=== PATIENT | male | born 1950 | race Caucasian/White ===

== ENCOUNTER → 2021-08-30 | Outpatient (CLI) | payer MEDICARE, OTHER ==
--- NOTE | 2021-08-30 15:08 | Diagnostic Imaging Report ---
EXAMINATION: Abdomen 1 view HISTORY: ABDOMINAL PAIN CONSTIPATION COMPARISON: None available. FINDINGS: There is a moderate amount of gas and stool throughout the colon. Nonobstructive bowel gas pattern. No radiopaque foreign body. The lung bases are clear. Degenerative changes of the hips and spine. Osseous structures are otherwise intact. IMPRESSION: Moderate stool burden without other acute abnormality in the abdomen. Dictated by: Dictated on workstation # [id number]
[2021-08-30 15:25] LABS: HEMATOCRIT 43 % (40-54); HEMOGLOBIN 14.5 g/dL (13.3-17.7); MEAN CORPUSCULAR HEMOGLOBIN 32 pg (25-34); MEAN CORPUSCULAR HGB CONC 34 g/dL (32-36); MEAN CORPUSCULAR VOLUME 95 fL (80-99); MEAN PLATELET VOLUME 10.3 fL (9.0-12.2); PLATELET COUNT 190 10^3/uL (130-400); WHITE BLOOD COUNT 11.7 10^3/uL (4.3-11.0)
[2021-08-30 15:34] LABS: ALBUMIN 4.1 GM/DL (3.2-4.5); POTASSIUM 4.2 MMOL/L (3.6-5.0)
--- NOTE | 2021-08-30 15:34 | Diagnostic Imaging Report ---
INDICATION: Abdominal pain, constipation, as well as abdominal thrill. FINDINGS: Proximal abdominal aorta measures 2.6 cm AP x 3.1 cm transverse. Midabdominal aorta measures 2.1 cm AP x 2.6 cm transverse. Distal aorta is 2.1 cm AP x 2.6 cm transverse. Right iliac measures 1.9 x 1.4 cm. Left iliac measures 1.3 x 1.7 cm. A note is made of non peristalsing, noncompressible loop of bowel in the upper midabdomen, correlating with the area of patient's pain. IMPRESSION: 1. 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 No dissection is seen. There is also some mild dilatation of bilateral iliac arteries. 2. Noncompressible, non peristalsing loop of bowel in the upper midabdomen correlating with the area of patient's pain. Features are nonspecific. If symptoms persist, CT may be useful for further evaluation. Dictated by: Dictated on workstation # [id number]
[2021-08-30 15:36] LABS: CALCIUM 10.1 MG/DL (8.5-10.1)
[2021-08-30 15:37] LABS: TOTAL PROTEIN 7.3 GM/DL (6.4-8.2)
[2021-08-30 15:39] LABS: BILIRUBIN,TOTAL 0.6 MG/DL (0.1-1.0)
[2021-08-30 15:40] LABS: CREATININE SERUM 0.96 MG/DL (0.60-1.30)
== END ==
LOC: RAD 14:49
PROVIDERS: ATTEND Nurse Practitioner Family
DX: K59.00 Constipation, unspecified (principal)
CPT/HCPCS: 36415; 74018; 76775; 80053; 84443; 85027

== ENCOUNTER → 2021-09-04 | Outpatient (CLI) | payer MEDICARE, OTHER ==
[2021-09-04 15:55] LABS: HEMATOCRIT 41 % (40-54); MEAN CORPUSCULAR HEMOGLOBIN 32 pg (25-34); MEAN CORPUSCULAR HGB CONC 34 g/dL (32-36); MEAN CORPUSCULAR VOLUME 94 fL (80-99); MEAN PLATELET VOLUME 10.2 fL (9.0-12.2); PLATELET COUNT 224 10^3/uL (130-400); WHITE BLOOD COUNT 7.9 10^3/uL (4.3-11.0)
--- NOTE | 2021-09-04 15:59 | Diagnostic Imaging Report ---
PROCEDURE: CT abdomen without contrast. TECHNIQUE: Multiple contiguous axial images were obtained through the abdomen without the use of intravenous contrast. Auto Exposure Controls were utilized during the CT exam to meet ALARA standards for radiation dose reduction. INDICATION: Abdominal pain. COMPARISON: None. FINDINGS: Please note, the pelvis was omitted from the examination. There is some questionable inflammatory change involving the gallbladder. Recommend ultrasound correlation. The lung bases are clear. There are benign renal cysts. The visualized pancreas, spleen, liver, adrenal glands, bowel, and vascular structures are unremarkable. IMPRESSION: Questionable cholecystitis. Recommend ultrasound correlation. Dictated by: Dictated on workstation # [id number]
[2021-09-04 16:03] LABS: ALBUMIN 3.6 GM/DL (3.2-4.5); CHLORIDE 102 MMOL/L (98-107); POTASSIUM 3.6 MMOL/L (3.6-5.0); SODIUM 138 MMOL/L (135-145)
[2021-09-04 16:04] LABS: AMYLASE 58 U/L (25-125); CALCIUM 9.4 MG/DL (8.5-10.1)
[2021-09-04 16:05] LABS: GLUCOSE 108 MG/DL (70-105)
[2021-09-04 16:06] LABS: TOTAL PROTEIN 6.2 GM/DL (6.4-8.2)
[2021-09-04 16:07] LABS: BILIRUBIN,TOTAL 0.6 MG/DL (0.1-1.0); CARBON DIOXIDE 26 MMOL/L (21-32)
[2021-09-04 16:09] LABS: ALKALINE PHOSPHATASE 78 U/L (40-136); CREATININE SERUM 0.94 MG/DL (0.60-1.30); GFR ESTIMATED 87
[2021-09-04 16:10] LABS: BUN/CREATININE RATIO 16
[2021-09-04 16:12] LABS: ALANINE AMINOTRANSFERASE 17 U/L (0-55)
[2021-09-04 16:13] LABS: CREATINE KINASE 30 U/L (30-200); LIPASE 43 U/L (8-78)
== END ==
LOC: CARD 15:15
PROVIDERS: ATTEND Nurse Practitioner Family
DX: K59.09 Other constipation (principal)
CPT/HCPCS: 36415; 74150; 80053; 82150; 82550; 83690; 84484; 85027; 93005

== ENCOUNTER → 2021-09-07 | Outpatient (CLI) | payer MEDICARE, OTHER ==
--- NOTE | 2021-09-07 08:21 | Diagnostic Imaging Report ---
PROCEDURE: US Gallbladder. INDICATION: Abdominal pain with abnormal findings on CT. TECHNIQUE: Multiple grayscale sonographic images were obtained of the right upper quadrant of the abdomen. CORRELATION STUDY: CT abdomen 09/04/2021 FINDINGS: LIVER: There is uniform echotexture within the visualized portions of the liver. The main portal vein is patent and with normal direction of flow. Liver length is approximately 17 cm. GALLBLADDER: There is abnormal gallbladder wall thickening at approximately 5 mm. There does appear to be small amount of surrounding pericholecystic fluid. No definitive shadowing gallstones. COMMON BILE DUCT: Nondilated at 0.5 cm. AORTA/IVC: Not well visualized. PANCREAS: Largely obscured and not well visualized. RIGHT KIDNEY: 13.8 x 5.3 x 5.9 cm. No hydronephrosis. Several hypoechoic masses compatible with cysts. Largest at the mid pole 6.7 x 4.5 x 5.4 cm. Once inferior pole 5.7 x 5.5 x 3.6 cm. OTHER: There is an abnormal echogenic, shadowing area in the right upper quadrant near the left hepatic lobe. In correlation with CT imaging may very well reflect the rather extensively edematous portion of the distal stomach/duodenum. IMPRESSION: 1. No definitive shadowing gallstones. There is however abnormal gallbladder wall thickening and pericholecystic fluid. No definitive sonographic [place] sign. Possibility of acalculous cholecystitis excluded. 2. Abnormal hypoechoic area in echogenic mass in the right upper quadrant. In correlation with CT imaging may very well reflect an abnormally thickened, edematous distal stomach and duodenum. 3. Given the overall findings, consideration for repeat CT imaging of the abdomen preferably with contrast would be recommended. Dictated by: Dictated on workstation # [id number]
== END ==
LOC: RAD 07:08
PROVIDERS: ATTEND Surgery
DX: K82.8 Other specified diseases of gallbladder (principal); R92.8 Other abnormal and inconclusive findings on diagnostic imaging of breast
CPT/HCPCS: 76705

== ENCOUNTER → 2022-12-12 | Outpatient (CLI) | payer MEDICARE, OTHER ==
--- NOTE | 2022-12-12 17:09 | Diagnostic Imaging Report ---
INDICATION: Chest pain. PA and lateral views were obtained. FINDINGS: Heart size is normal. There is right perihilar discoid atelectasis. No pleural effusion or pneumothorax. Mediastinum is unremarkable. IMPRESSION: Right perihilar discoid atelectasis otherwise unremarkable Dictated by: Dictated on workstation # [id number]
[2022-12-12 17:20] LABS: BASOPHILS # (AUTO) 0.1 10^3/uL (0.0-0.1); BASOPHILS % (AUTO) 1 % (0-10); EOSINOPHILS # (AUTO) 0.8 10^3/uL (0.0-0.3); EOSINOPHILS % (AUTO) 9 % (0-10); HEMATOCRIT 43 % (40-54); HEMOGLOBIN 14.1 g/dL (13.3-17.7); LYMPHOCYTES % (AUTO) 34 % (12-44); MEAN CORPUSCULAR HEMOGLOBIN 32 pg (25-34); MEAN CORPUSCULAR HGB CONC 33 g/dL (32-36); MEAN CORPUSCULAR VOLUME 96 fL (80-99); MEAN PLATELET VOLUME 10.7 fL (9.0-12.2); MONOCYTES # (AUTO) 0.7 10^3/uL (0.0-1.0); MONOCYTES % (AUTO) 8 % (0-12); NEUTROPHILS # (AUTO) 4.3 10^3/uL (1.8-7.8); NEUTROPHILS % (AUTO) 48 % (42-75); PLATELET COUNT 195 10^3/uL (130-400)
[2022-12-12 17:44] LABS: ALANINE AMINOTRANSFERASE 23 U/L (0-55); ALBUMIN 4.2 GM/DL (3.2-4.5); ALKALINE PHOSPHATASE 99 U/L (40-136); BILIRUBIN,TOTAL 0.3 MG/DL (0.1-1.0); BUN/CREATININE RATIO 20; CALCIUM 9.6 MG/DL (8.5-10.1); CARBON DIOXIDE 20 MMOL/L (21-32); CHLORIDE 112 MMOL/L (98-107); CREATININE SERUM 0.99 MG/DL (0.60-1.30); GFR ESTIMATED 81; GLUCOSE 96 MG/DL (70-105); SODIUM 141 MMOL/L (135-145)
== END ==
LOC: CARD 16:36
PROVIDERS: ATTEND Physician Assistant
DX: J45.909 Unspecified asthma, uncomplicated (principal)
CPT/HCPCS: 36415; 71046; 80053; 84443; 84484; 85025; 93005